=== PATIENT | female | born 2000 | race Caucasian/White ===

== ENCOUNTER 2022-11-15 15:11 | Emergency (ER) | payer SELFPAY ==
[2022-11-15] MEDS ORDERED: Lidocaine 1% 5 ML VIAL INJECT ONE (16:16)
== END 2022-11-15 16:54 | disposition home or self-care (01) ==
LOC: MW.ED 15:11
DX: S00.551A Superficial foreign body of lip, initial encounter (principal); W45.8XXA Other foreign body or object entering through skin, initial encounter
CPT/HCPCS: 10120; 99282; J3490

== ENCOUNTER 2022-11-26 23:57 | Emergency (ER) | payer OTHER ==
[2022-11-27] MEDS ORDERED: Ketorolac 30 MG/ML SDV IM STA (00:02)
== END 2022-11-27 01:09 | disposition home or self-care (01) ==
LOC: MW.ED 23:57
DX: S63.502A Unspecified sprain of left wrist, initial encounter (principal); M79.642 Pain in left hand; W23.0XXA Caught, crushed, jammed, or pinched between moving objects, initial encounter; Y92.89 Other specified places as the place of occurrence of the external cause; Y99.0 Civilian activity done for income or pay
CPT/HCPCS: 73110; 73130; 96372; 99283; J1885